=== PATIENT | male | born 1960 | race Caucasian/White ===

== ENCOUNTER 2019-01-25 12:02 | Emergency (ER) | payer SELFPAY ==
[2019-01-25 12:56] LABS: Protime INR 1.06
[2019-01-25 13:13] LABS: ALT/SGPT 34 U/L (12-78); AST/SGOT 15 U/L (15-37); Albumin 3.8 g/dL (3.4-5.0); Alkaline Phosphatase 86 U/L (45-117); BUN Blood Urea Nitrogen 15 mg/dL (7-18); Bicarbonate 23 mmol/L (21-32); Bilirubin Direct 0.3 mg/dL (0-0.2); Bilirubin Total 2.1 mg/dL (0.2-1.0); Glucose Level 100 mg/dL (74-106); Magnesium 2.4 mg/dL (1.8-2.4); NT PRO-BNP 48 pg/mL (<125); Potassium 3.9 mmol/L (3.5-5.1); Protein, Total 7.3 g/dL (6.4-8.2); Sodium Level 137 mmol/L (136-145); Troponin (Emerg Dept Use Only) < 0.02 ng/mL (0.0-0.045)
[2019-01-25 13:17] LABS: Absolute Lymphocytes (CBC) 1.8 K/uL (0.7-4.9); Basophils % 0.4 % (0-1.3); Hematocrit 43.7 % (39.6-49.0); Lymphocytes % 25.8 % (15.3-44.8); MPV 8.5 fL (7.6-11.3); RBC Red Blood Cell Count 4.64 M/uL (4.33-5.43)
--- NOTE | 2019-01-25 13:47 | RAD REPORT ---
EXAM DESCRIPTION: CT - Head Brain Wo Cont - 01/25/2019 1:11 pm CLINICAL HISTORY: Dizziness and weakness COMPARISON: None. TECHNIQUE: Computed axial tomography of the head was obtained. IV contrast was not requested. All CT scans are performed using dose optimization technique as appropriate and may include automated exposure control or mA/KV adjustment according to patient size. FINDINGS: An intracranial bleed is not seen . The ventricles are normal in caliber. No extra-axial fluid collection is noted. Fluid within the sinuses/ mastoids is not seen. IMPRESSION: No acute intracranial abnormality is seen. If patient's symptoms persist MRI of the bra in would be recommended.
--- NOTE | 2019-01-25 14:05 | RAD REPORT ---
EXAM DESCRIPTION: Emma Single View01/25/2019 1:48 pm CLINICAL HISTORY: Chest pain COMPARISON: none FINDINGS: The lungs appear clear of acute infiltrate. The heart is borderline enlarged IMPRESSION: No acute abnormalities displayed
--- NOTE | 2019-01-25 14:57 | RAD REPORT ---
EXAM DESCRIPTION: US - Abdomen Exam Limited - 01/25/2019 2:43 pm CLINICAL HISTORY: Abdominal pain. COMPARISON: None. FINDINGS: The gallbladder wall is not thickened. A gallstone is not seen. The common bile duct measures 6 millimeters which is upper limits normal. IMPRESSION: Unremarkable gallbladder ultrasound.
--- NOTE | 2019-01-25 15:00 | RAD REPORT ---
EXAM DESCRIPTION: USCarotid Artery Bilateral01/25/2019 2:43 pm CLINICAL HISTORY: Numbness/weakness COMPARISON: None FINDINGS: The velocity of the right internal carotid artery equals 64 cm/sec. The right ICA/CCA ra ophelia .8 The velocity of the left internal carotid artery equals 63 cm/sec. The left ICA/CCA ratio .8 Mild plaque is present within the carotid arteries. The vertebral arteries demonstrate antegrade flow IMPRESSION: Mild plaque within the carotid arteries without evidence of a hemodynamically significan t stenosis NASCET criteria used. Mild 0-49% stenosis Moderate 50-69% stenosis Severe 70-99% stenosis
[2019-01-25] MEDS ORDERED: NA CHLORIDE 0.9% 1,000 ML ONE (15:28)
--- NOTE | 2019-01-25 15:52 | ER ---
Nurse's Notes [facility] Name: Bobby King Age: 58 yrs Sex: Male : 1960 Arrival Date: 01/25/2019 Time: 12:03 Bed 2 Private MD: Diagnosis: Malaise and fatigue Presentation: 01/25 12:13 Presenting complaint: Patient states: "I feel really tired, it started on Sunday aj1 night. Earlier in the week I had a sore spot on my leg, and I thought that I bumped it. Then on Sunday, my right leg suddenly got real flimsy and numb and I got dizzy. It lasted for like 5 seconds. I woke up the next morning still feeling weak." Reports fatigue, dizziness. Denies weakness at this time. Transition of care: patient was not received from another setting of care. Onset of symptoms was December 2018. Risk Assessment: Do you want to hurt yourself or someone else? Patient reports no desire to harm self or others. Initial Sepsis Screen: Does the patient meet any 2 criteria? No. Patient's initial sepsis screen is negative. Does the patient have a suspected source of infection? No. Patient's initial sepsis screen is negative. Care prior to arrival: None. 12:13 Method Of Arrival: Ambulatory aj1 12:13 Acuity: JAKY 3 aj1 Triage Assessment: 12:17 The onset of the patients symptoms was January 21, 2019 at 19:00. General: Appears in no aj1 apparent distress. comfortable, Behavior is calm, cooperative, appropriate for age. Pain: Denies pain. Neuro: Level of Consciousness is awake, alert, obeys commands, Oriented to person, place, time, situation, Moves all extremities. Full function Gait is steady, Speech is normal, Facial symmetry appears normal, Reports dizziness, fatigue. Cardiovascular: Patient's skin is warm and dry. Respiratory: Airway is patent Respiratory effort is even, unlabored, Respiratory pattern is regular, symmetrical. Stroke Activation: Symptom onset > 6 hours Physician: Stroke Attending; Name: ; Notified At: ; Arrived At: Physician: Chief Stroke Resident; Name: ; Notified At: ; Arrived At: Physician: Stroke Resident; Name: ; Notified At: ; Arrived At: Physician: ED Attending; Name: ; Notified At: ; Arrived At: Physician: ED Resident; Name: ; Notified At: ; Arrived At: Historical: - Allergies: 12:17 No Known Allergies; aj1 - Home Meds: 12:17 Aspirin Oral [Active]; aj1 - PMHx: 12:17 None; aj1 - PSHx: 12:17 None; aj1 - Immunization history:: Flu vaccine is not up to date. - Social history:: Smoking status: Patient/guardian denies using tobacco. - Ebola Screening: : Patient denies travel to an Ebola-affected area in the 21 days before illness onset. Screenin:30 Abuse screen: Denies threats or abuse. Denies injuries from another. Nutritional ss screening: No deficits noted. Tuberculosis screening: Never had TB. Fall Risk No fall in past 12 months (0 pts). No secondary diagnosis (0 pts). IV access (20 points). Ambulatory Aid- None/Bed Rest/Nurse Assist (0 pts). Gait- Normal/Bed Rest/Wheelchair (0 pts) Mental Status- Oriented to own ability (0 pts). Assessment: 12:30 VAN Scoring: Arm Drift: Patients demonstrates NO arm weakness. Patient is VAN Negative. ss Visual Disturbance: No visual disturbance noted. Aphasia: No aphasia noted. Neglect: No neglect noted. Patient has been NPO before screening. The patient is alert, and able to follow commands. The patient does not exhibit slurred or garbled speech. The patient is not exhibiting difficulty speaking. The patient does not exhibit difficulty understanding words. The patient is able to swallow own secretions with no drooling or need for suction. Patient tolerated one teaspoon of water. No drooling, immediate coughing, gurgling, or clearing of the throat was noted. The patient tolerated 90mL of water. No drooling, immediate coughing, gurgling, or clearing of the throat was noted. The patient passed the bedside swallow screening. Oral medications may be given as ordered. Contact Physician for further diet orders. Provider notified of bedside swallow screening results: Hemant Forrester MD. T-PA (Activase) Screening: Contraindications: Patient reports onset of signs and symptoms of stroke greater than 6 hours ago: Yes. 12:30 General: Appears in no apparent distress. comfortable, Behavior is calm, cooperative, ss Denies fever, feeling ill, fatigue, chills. General: Pt reports that 4 days ago his R leg felt like it wasn't there for 5 seconds. Pt also reports he has episodes while exerting himself of fatigue and dizziness. Patient has no complaints at this time. . Pain: Denies pain. Neuro: Level of Consciousness is awake, alert, obeys commands, Oriented to person, place, time, situation, Videotape Recording Engineer are equal bilaterally Moves all extremities. Full function Gait is steady, Speech is normal, Facial symmetry appears normal, Pupils are PERRLA, Intact. Cardiovascular: Capillary refill < 3 seconds is brisk in bilateral fingers. Respiratory: Airway is patent Respiratory effort is even, unlabored, Respiratory pattern is regular, symmetrical. Respiratory: Denies cough, shortness of breath pain with respiration, pain with cough, pain with movement. GI: Patient currently denies diarrhea, nausea, vomiting. : No signs and/or symptoms were reported regarding the genitourinary system. Denies burning with urination, discharge, inability to void, urinary frequency. EENT: Oral mucosa is moist. Derm: Skin is pink, warm \\T\\ dry. normal. Musculoskeletal: Circulation, motion, and sensation intact. Range of motion: intact in all extremities, Swelling absent. 13:30 Reassessment: Patient appears in no apparent distress at this time. No changes from ss previously documented assessment. Patient and/or family updated on plan of care and expected duration. Pain level reassessed. 14:30 Reassessment: Patient and/or family updated on plan of care and expected duration. Pain ss level reassessed. Patient is alert, oriented x 3, equal unlabored respirations, skin warm/dry/pink. Patient denies pain at this time. 15:30 Reassessment: Patient appears in no apparent distress at this time. No changes from ss previously documented assessment. Patient and/or family updated on plan of care and expected duration. Pain level reassessed. 16:26 Reassessment: Patient appears in no apparent distress at this time. No changes from ss previously documented assessment. Vital Signs: 12:17 BP 151 / 102; Pulse 70; Resp 18; Temp 98.7; Pulse Ox 98% on R/A; Weight 97.52 kg (R); aj1 Height 6 ft. 2 in. (187.96 cm) (R); Pain 0/10; 13:19 BP 147 / 96; Pulse 59; Resp 18; Pulse Ox 99% ; sv 14:30 BP 140 / 99; Pulse 57; Resp 16; Pulse Ox 99% ; sv 15:59 BP 162 / 98; Pulse 72; Resp 16; Pulse Ox 100% ; sv 12:17 Body Mass Index 27.60 (97.52 kg, 187.96 cm) aj1 NIH Stroke Scale Scores: 12:30 NIHSS Score: 0 ss ED Course: 12:03 Patient arrived in ED. as 12:17 Triage completed. aj1 12:17 Arm band placed on Patient placed in an exam room. aj1 12:26 Howard Lopez PA is PHCP. jmm 12:26 Hemant Forrester MD is Attending Physician. jmm 12:30 Patient has correct armband on for positive identification. Bed in low position. Call ss light in reach. Side rails up X2. quality assurance monitor body on. Pulse ox on. NIBP on. 12:30 Inserted saline lock: 20 gauge in right forearm, using aseptic technique. Blood ss collected. 13:04 Rani Hameed, MACIEJ is Primary Nurse. ss 13:11 CT completed. Patient tolerated procedure well. Patient moved back from CT. mw3 13:12 CT Head Brain wo Cont In Process Unspecified. EDMS 13:12 Urine collected: clean catch specimen, clear. sv 13:49 XRAY Chest (1 view) In Process Unspecified. EDMS 14:42 Ultrasound completed. Patient tolerated well. sg3 14:42 US Abdomen Limited In Process Unspecified. EDMS 14:42 Carotid Artery Bilateral US In Process Unspecified. EDMS 15:51 Garland Beltre MD is Referral Physician. jmm 16:20 No provider procedures requiring assistance completed. ss 16:24 IV discontinued, intact, bleeding controlled, No redness/swelling at site. Pressure ss dressing applied. Administered Medications: 15:15 Not Given (Pt reports he to two ASA tablets this morning, unknown strength. ALBERT Lawrence ss notified): Aspirin Chewable Tablet 324 mg PO once; 81 mg tablets x 4 15:17 Drug: NS 0.9% 1000 ml Route: IV; Rate: 1 bolus; Site: right antecubital; ss 16:26 Follow up: IV Status: Completed infusion; IV Intake: 1000ml ss Intake: 16:26 IV: 1000ml; Total: 1000ml. ss Output: 13:12 Urine: 280ml (Voided); Total: 280ml. Outcome: 15:52 Discharge ordered by . michael 16:20 Condition: good 16:20 Discharge instructions given to patient, family, Instructed on discharge instructions, follow up and referral plans. Demonstrated understanding of instructions, follow-up care. 16:24 Discharged to home ambulatory, with family. 16:26 Patient left the ED. NIH Stroke Scale - NIH Stroke Score Date: 01/25/2019 Time: 12:30 Total Score = 0 1a. Level of Consciousness (LOC) - 0(Alert) 1b. Level of Consciousness (LOC) (Year \\T\\ Age) - 0(Both) 1c. LOC Commands (Open \\T\\ Closes Eyes/Putty Remover) - 0(Both) 2. Best Gaze (Lateral Gaze Paresis) - 0(Normal) 3. Visual Field Loss - 0(No visual loss) 4. Facial Palsy - 0(Normal) 5a. Left Arm: Motor (10-second hold) - 0(No drift) 5b. Right Arm: Motor (10-second hold) - 0(No drift) 6a. Left Leg: Motor (5-second hold - always test supine) - 0(No drift) 6b. Right Leg: Motor (5-second hold - always test supine) - 0(No drift) 7. Limb Ataxia (finger/nose \\T\\ heel/holman - test with eyes open) - 0(Absent) 8. Sensory Loss (pinprick arms/legs/face) - 0(Normal) 9. Best Language: Aphasia (description/naming/reading) - 0(No aphasia) 10. Dysarthria (speech clarity - read or repeat words) - 0(Normal) 11. Extinction and Inattention (visual/tactile/auditory/spatial/personal) - 0(No abnormality) Initials: Signatures: Dispatcher [employer] Gail Royal RN RN Gloria To RN RN Howard Lopez PA PA jmm Martinez, Amelia as Smirch, Shelby, RN RN Sulma Ladd 3 Romelia Connell mw3
--- NOTE | 2019-01-25 15:53 | EDPHYS ---
Physician Documentation [facility] Name: Bobby King Age: 58 yrs Sex: Male : 1960 Arrival Date: 01/25/2019 Time: 12:03 Bed 2 Private MD: ED Physician Hemant Forrester HPI: 01/25 12:39 This 58 yrs old Male presents to ER via Ambulatory with complaints of Doesn't jmm Feel Right, Weakness. 12:39 The patient's problem is reported as weakness, in the right lower extremity. Onset: The jmm symptoms/episode began/occurred acutely, 4 day(s) ago. Duration: This was a single incident. Associated signs and symptoms: Pertinent positives: lightheadedness, numbness, Pertinent negatives: ataxia. This is a 58 year old female with no chronic medical conditions that presents to the ED with complaints of of right lower extremity weakness which occurred 4 days ago. Patient states the episode lasted for approx 5 seconds. Patient states since has had generalized fatigue which worsened today while climbing a ladder. Denies chest pain, denies shortness of breath. . Historical: - Allergies: 12:17 No Known Allergies; aj1 - Home Meds: 12:17 Aspirin Oral [Active]; aj1 - PMHx: 12:17 None; aj1 - PSHx: 12:17 None; aj1 - Immunization history:: Flu vaccine is not up to date. - Social history:: Smoking status: Patient/guardian denies using tobacco. - Ebola Screening: : Patient denies travel to an Ebola-affected area in the 21 days before illness onset. ROS: 12:39 Cardiovascular: Negative for chest pain, palpitations, and edema, Respiratory: Negative jmm for shortness of breath, cough, wheezing, and pleuritic chest pain. 12:39 Constitutional: Positive for fatigue. 12:39 MS/extremity: Positive for paresthesias. 12:39 Neuro: Positive for weakness. 12:39 All other systems are negative. Exam: 12:39 Constitutional: This is a well developed, well nourished patient who is awake, alert, jmm and in no acute distress. Head/Face: atraumatic. Eyes: EOMI, no conjunctival erythema appreciated ENT: Moist Mucus Membranes Neck: Trachea midline, Supple Chest/axilla: Normal chest wall appearance and motion. Cardiovascular: Regular rate and rhythm. No edema appreciated Respiratory: Normal respirations, no respiratory distress appreciated Abdomen/GI: Non distended, soft Back: Normal ROM Skin: General appearance color normal MS/ Extremity: Moves all extremities, no obvious deformities appreciated, no edema noted to the lower extremities 12:39 Neuro: Orientation: is normal, Mentation: is normal, Memory: is normal, Cerebellar function: normal finger to nose testing, Motor: is normal, strength is normal, Sensation: is normal, no obvious gross deficits. 12:39 Psych: Behavior/mood is pleasant, cooperative. Vital Signs: 12:17 BP 151 / 102; Pulse 70; Resp 18; Temp 98.7; Pulse Ox 98% on R/A; Weight 97.52 kg (R); aj1 Height 6 ft. 2 in. (187.96 cm) (R); Pain 0/10; 13:19 BP 147 / 96; Pulse 59; Resp 18; Pulse Ox 99% ; sv 14:30 BP 140 / 99; Pulse 57; Resp 16; Pulse Ox 99% ; sv 15:59 BP 162 / 98; Pulse 72; Resp 16; Pulse Ox 100% ; sv 12:17 Body Mass Index 27.60 (97.52 kg, 187.96 cm) aj1 NIH Stroke Scale Scores: 12:30 NIHSS Score: 0 ss MDM: 12:39 Patient medically screened. [facility] 15:50 Data reviewed: vital signs, nurses notes. Counseling: I had a detailed discussion with michael the patient and/or guardian regarding: the historical points, exam findings, and any diagnostic results supporting the discharge/admit diagnosis, lab results, radiology results, the need for outpatient follow up, to return to the emergency department if symptoms worsen or persist or if there are any questions or concerns that arise at home. ED course: Patient is alert and non toxic in appearance. Patient has steady gait. No motor or sensory deficits appreciated. Normal cerebellar exam. Patient is advised to follow up with PCP for further evaluation. Patient is otherwise given strict return precautions. Patient understood and agrees with the plan of care. . 01/25 12:40 Order name: Basic Metabolic Panel; Complete Time: 13:21 [facility] 01/25 12:40 Order name: CBC with Diff; Complete Time: : [facility] 01/25 12:40 Order name: LFT's; Complete Time: 13:21 [facility] 01/25 12:40 Order name: Magnesium; Complete Time: 13:21 [facility] 01/25 12:40 Order name: NT PRO-BNP; Complete Time: 13:21 [facility] 01/25 12:40 Order name: PT-INR; Complete Time: 13:21 [facility] 01/25 12:40 Order name: Troponin (emerg Dept Use Only); Complete Time: 13:21 [facility] 01/25 12:40 Order name: XRAY Chest (1 view); Complete Time: 14:08 [facility] 01/25 12:40 Order name: CT Head Brain wo Cont; Complete Time: 14:01 [facility] 01/25 13:21 Order name: US Abdomen Limited; Complete Time: 15:09 [facility] 01/25 13:55 Order name: Urine Dipstick--Ancillary (enter results) 01/25 14:05 Order name: Carotid Artery Bilateral US; Complete Time: 15:09 [facility] 01/25 12:40 Order name: EKG; Complete Time: 12:42 [facility] 01/25 12:40 Order name: Cardiac monitoring; Complete Time: 12:43 [facility] 01/25 12:40 Order name: EKG - Nurse/Tech; Complete Time: 12:43 [facility] 01/25 12:40 Order name: IV Saline Lock; Complete Time: 12:43 [facility] 01/25 12:40 Order name: Labs collected and sent; Complete Time: 12:43 [facility] 01/25 12:40 Order name: O2 Per Protocol; Complete Time: 12:43 [facility] 01/25 12:40 Order name: O2 Sat Monitoring; Complete Time: 12:43 [facility] 01/25 12:40 Order name: Urine Dipstick-Ancillary (obtain specimen); Complete Time: 13:13 [facility] Administered Medications: 15:15 Not Given (Pt reports he to two ASA tablets this morning, unknown strength. ALBERT Lawrence ss notified): Aspirin Chewable Tablet 324 mg PO once; 81 mg tablets x 4 15:17 Drug: NS 0.9% 1000 ml Route: IV; Rate: 1 bolus; Site: right antecubital; ss 16:26 Follow up: IV Status: Completed infusion; IV Intake: 1000ml ss Disposition: 01/26 11:21 Co-signature as Attending Physician, Hemant Forrester MD I agree with the assessment and elza plan of care. Disposition: 01/25/19 15:52 Discharged to Home. Impression: Malaise and fatigue. - Condition is Stable. - Discharge Instructions: Fatigue. - Medication Reconciliation Form, Thank You Letter, Antibiotic Education, Prescription Opioid Use form. - Follow up: Garland Beltre MD; When: 2 - 3 days; Reason: Recheck today's complaints, Continuance of care, Re-evaluation by your physician. NIH Stroke Scale - NIH Stroke Score Date: 01/25/2019 Time: 12:30 Total Score = 0 1a. Level of Consciousness (LOC) - 0(Alert) 1b. Level of Consciousness (LOC) (Year \T\ Age) - 0(Both) 1c. LOC Commands (Open \T\ Closes Eyes/Multi Share Program Coordinator) - 0(Both) 2. Best Gaze (Lateral Gaze Paresis) - 0(Normal) 3. Visual Field Loss - 0(No visual loss) 4. Facial Palsy - 0(Normal) 5a. Left Arm: Motor (10-second hold) - 0(No drift) 5b. Right Arm: Motor (10-second hold) - 0(No drift) 6a. Left Leg: Motor (5-second hold - always test supine) - 0(No drift) 6b. Right Leg: Motor (5-second hold - always test supine) - 0(No drift) 7. Limb Ataxia (finger/nose \T\ heel/holman - test with eyes open) - 0(Absent) 8. Sensory Loss (pinprick arms/legs/face) - 0(Normal) 9. Best Language: Aphasia (description/naming/reading) - 0(No aphasia) 10. Dysarthria (speech clarity - read or repeat words) - 0(Normal) 11. Extinction and Inattention (visual/tactile/auditory/spatial/personal) - 0(No abnormality) Initials: ss Signatures: Dispatcher [employer] Gail Royal RN RN aj1 Hemant Forrester MD MD cha Mickail, Joel, PA PA jmm Smirch, Shelby, RN RN ss Corrections: (The following items were deleted from the chart) 01/25 16:26 15:52 01/25/2019 15:52 Discharged to Home. Impression: Malaise and fatigue. ss Condition is Stable. Forms are Medication Reconciliation Form, Thank You Letter, Antibiotic Education, Prescription Opioid Use. Follow up: Garland Beltre; When: 2 - 3 days; Reason: Recheck today's complaints, Continuance of care, Re-evaluation by your physician. michael
[2019-01-25 18:12] LABS: Urine Blood NEGATIVE (NEG); Urine Glucose NEGATIVE (NEG); Urine Protein NEGATIVE (NEG); Urine Specific Gravity 1.015 (1.005-1.030); Urine pH 5.5 (5.0-7.0)
--- NOTE | 2019-01-26 06:30 | EKG ---
Test Date: 2019-01-25 Test Time: 12:31:39 Window/Distribution Clerk: AMAURI MEASUREMENT RESULTS: Intervals: Rate: 67 [place]: 174 QRSD: 106 QT: 410 QTc: 433 [place]: P: 14 [place]: 174 QRS: -51 T: 10 INTERPRETIVE STATEMENTS: Normal sinus rhythm Left anterior fascicular block Abnormal ECG No previous ECG available for comparison Electronically Signed On 01-26-19 06:28:55 CDT by Arturo Mcdonald
== END 2019-01-25 16:26 | disposition home or self-care (01) ==
LOC: ER 12:02
DX: R53.81 Other malaise (principal); R53.83 Other fatigue; Z79.82 Long term (current) use of aspirin
CPT/HCPCS: 36415; 70450; 71045; 76705; 80048; 80076; 81003; 83735; 83880; 84484; 85025; 85610; 93005; 93880; 96360; 99285; J7030